=== PATIENT | female | born 1980 | race Caucasian/White ===

== ENCOUNTER 2025-07-19 15:46 | Outpatient (CLI) | payer MEDICARE ==
[2025-07-19 16:19] LABS: ALT (SGPT) 12 U/L (Less than 34); AST (SGOT) 67 U/L (11-34); Albumin 3.9 g/dL (3.1-4.5); Alkaline Phosphatase 47 U/L (40-110); Anion Gap 17 mmol/L (10-20); BUN (Urea Nitrogen) 7 mg/dL (7.0-18.7); Bilirubin, Total 1.0 mg/dL (0.3-1.2); Calc. Creatinine Clearance 0 mL/min (70-130); Calcium 9.2 mg/dL (7.8-10.44); Carbon Dioxide 22 mmol/L (22-29); Chloride 95 mmol/L (98-107); Globulin 3.6 g/dL (2.4-3.5); Glucose 115 mg/dL (70-105); Potassium 5.7 mmol/L (3.5-5.1); Sodium 128 mmol/L (136-145); Uric Acid 6.8 mg/dL (2.5-6.2)
[2025-07-19 16:31] LABS: #Basophils 0.1 thou/uL (0.0-0.2); #Eosinophils 0.0 thou/uL (0.0-0.7); #Lymphocytes 0.6 thou/uL (1.20-3.40); #Monocytes 0.4 thou/uL (0.11-0.59); #Neutrophils 7.5 thou/uL (1.40-6.50); %Basophils 0.6 % (0.0-1.0); %Eosinophils 0.3 % (0.0-10.0); %Lymphocytes 7.1 % (21.0-51.0); %Monocytes 4.5 % (0.0-10.0); %Neutrophils 87.5 % (42.0-75.0); Hematocrit 43.6 % (36.0-47.0); Hemoglobin 15.2 g/dL (12.0-16.0); Mean Corpuscular Hemoglobin 31.2 pg (27.0-31.0); Mean Corpuscular Volume 89.8 fl (78.0-98.0); Platelet Count 184 10x3/uL (130-400); Red Blood Cell (RBC) Count 4.86 mill/uL (4.20-5.40); White Blood Cell (WBC) Count 8.6 10x3/uL (4.8-10.8)
[2025-07-21 13:56] LABS: CRP, High Sensitivity at Bryan 1.47 mg/dL (< or = 0.5)
== END 2025-07-19 15:47 | disposition home or self-care (01) ==
LOC: MADLAB 15:46
PROVIDERS: ATTEND Family Medicine
DX: R22.9 Localized swelling, mass and lump, unspecified (principal)
CPT/HCPCS: 36415; 80053; 84550; 85025; 86141

== ENCOUNTER 2025-08-26 14:17 | Outpatient (CLI) | payer MEDICARE ==
[2025-08-26 14:47] LABS: INR-International Normal Ratio 1.6; Prothrombin Time 19.2 sec (12.0-14.7)
[2025-08-26 15:00] LABS: ALT (SGPT) 12 U/L (Less than 34); AST (SGOT) 49 U/L (11-34); Albumin 4.3 g/dL (3.1-4.5); Alkaline Phosphatase 45 U/L (40-110); Anion Gap 13 mmol/L (10-20); BUN (Urea Nitrogen) 10 mg/dL (7.0-18.7); Bilirubin, Direct 0.3 mg/dL (0.1-0.3); Bilirubin, Total 0.9 mg/dL (0.3-1.2); Calc. Creatinine Clearance 0 mL/min (70-130); Calcium 9.7 mg/dL (7.8-10.44); Carbon Dioxide 26 mmol/L (22-29); Chloride 98 mmol/L (98-107); Glucose 86 mg/dL (70-105); Potassium 5.3 mmol/L (3.5-5.1); Sodium 132 mmol/L (136-145)
[2025-08-26 15:25] LABS: Hematocrit 43.7 % (36.0-47.0); Hemoglobin 14.5 g/dL (12.0-16.0); MDiff Complete? YES; Mean Corpuscular Hemoglobin 31.5 pg (27.0-31.0); Mean Corpuscular Volume 95.2 fl (78.0-98.0); Platelet Adequacy Comment Appears Adequate; Platelet Count 152 10x3/uL (130-400); Red Blood Cell (RBC) Count 4.59 mill/uL (4.20-5.40); White Blood Cell (WBC) Count 7.1 10x3/uL (4.8-10.8)
[2025-08-26 23:19] LABS: Gamma GT (GGT) 79 U/L (9-36); Iron 113 ug/dL (50-170); Iron Binding Capacity, Total 233 mcg/dL (265-497)
[2025-08-26 23:21] LABS: Hep A IgM AB NONREACTIVE (NonReactive); Hep A IgM S/CO 0.31 S/CO (0-0.79); Hep B Core IgM Index 0.13 S/CO (0-0.79); Hep B Surf Ag NONREACTIVE S/CO (NonReactive); Hep C IgG Ab NONREACTIVE S/CO (NonReactive); Hep C Index 0.11 S/CO (0-0.79)
[2025-08-27 12:06] LABS: EliA Vaculitis New Method **** NEW METHOD ****; Mitochondrial Ab 1.4 U/mL (<4 Negative)
[2025-08-27 15:59] LABS: Reference Lab Name LABCORP
== END 2025-08-26 14:18 | disposition home or self-care (01) ==
LOC: MADLAB 14:17
DX: Z12.11 Encounter for screening for malignant neoplasm of colon (principal); R93.3 Abnormal findings on diagnostic imaging of other parts of digestive tract; R79.89 Other specified abnormal findings of blood chemistry; R10.84 Generalized abdominal pain; R14.0 Abdominal distension (gaseous); R19.4 Change in bowel habit; R11.2 Nausea with vomiting, unspecified; R13.10 Dysphagia, unspecified; Z85.819 Personal history of malignant neoplasm of unspecified site of lip, oral cavity, and pharynx; Z85.42 Personal history of malignant neoplasm of other parts of uterus
CPT/HCPCS: 36415; 80048; 80074; 80076; 82103; 82104; 82390; 82977; 83516; 83540; 83550; 85025; 85610; 86015; 86038; 86225